=== PATIENT | male | born 1995 ===

== ENCOUNTER → 2017-07-01 | Outpatient (CLI) | payer BC ==
[2017-07-05 14:47] LABS: QUANTIF TB AG-NIL 0.04 IU/ML; QUANTIFERON NIL 0.07 IU/ML
== END | disposition home or self-care (01) ==
LOC: C.LABSPEC 12:30
PROVIDERS: ATTEND Family Medicine
DX: Z23 Encounter for immunization (principal); Z11.1 Encounter for screening for respiratory tuberculosis; Z11.3 Encounter for screening for infections with a predominantly sexual mode of transmission

== ENCOUNTER 2017-10-23 00:23 | Emergency (ER) | payer BC ==
[2017-10-23 00:32] VITALS: TEMP 36.9; Ht 175.3 cm
[2017-10-23 01:07] LABS: BLOOD UREA NITROGEN 10 mg/dl (7-18); CALCIUM 8.4 mg/dl (8.5-10.1); CARBON DIOXIDE 24 mmol/L (21-32); CREATININE 1.18 mg/dl (0.60-1.40); GLUCOSE 96 mg/dl (70-99); POTASSIUM 3.8 mmol/L (3.5-5.1); SODIUM 141 mmol/L (136-145)
--- NOTE | 2017-10-23 05:57 | EMERGENCY ROOM VISIT NOTE ---
History Report prepared by Chichi: Jojo Silveira Under the Supervision of: Dr. Jessica Paulino D.O. First contact with patient: 00:28 Chief Complaint: ALCOHOL OVERDOSE Stated Complaint: ALCOHOL OVERDOSE History of Present Illness The patient is a 21 year old male who presents to the Emergency Room with persistent alcohol intoxication starting [employer]. The patient presents to the ED by EMS. He was drinking vodka tonight. He returned to his dorm room and was vomiting. His roommate was concerned and called EMS. He denies any abdominal pain or any other pain. He denies any fall or injury. He is no longer nauseous. He does not smoke. The history is limited due to intoxication. Source of History: patient, nursing staff History Limited By: intoxication Onset: [employer] Position: other (global) Quality: other (alcohol intoxication) Timing: other (persistent) Associated Symptoms: + nausea (resolved), + vomiting (resolved), No abdominal pain Review of Systems See HPI for pertinent positives & negatives. A total of 10 systems reviewed and were otherwise negative. Past Medical & Surgical No significant past medical history. Family History No pertinent family history stated. Social History Housing Status: lives with roommate Occupation Status: [employer] student Current/Historical Medications No Active Prescriptions or Reported Meds Allergies Coded Allergies: No Known Allergies (Unverified , 10/23/17) Physical Exam Vital Signs Date Time Temp Pulse Resp B/P (MAP) Pulse Ox O2 Delivery O2 Flow Rate FiO2 10/23/17 06:10 82 18 127/75 98 Room Air 10/23/17 05:20 82 18 113/61 95 Room Air 10/23/17 04:18 73 10/23/17 03:07 74 18 113/68 96 Room Air 10/23/17 02:47 74 16 121/57 97 Room Air 10/23/17 01:44 73 16 120/57 97 Room Air 10/23/17 00:40 67 10/23/17 00:35 Room Air 10/23/17 00:35 Room Air 10/23/17 00:32 36.9 59 16 121/71 97 Room Air Physical Exam GENERAL: smells of alcohol, alert, well appearing, well nourished, no distress, non-toxic EYE EXAM: normal conjunctiva, PERRL and EOM's grossly intact OROPHARYNX: no exudate, no erythema, lips, buccal mucosa, and tongue normal and mucous membranes are moist NECK: supple, no nuchal rigidity, no adenopathy, non-tender LUNGS: Clear to auscultation. Normal chest wall mechanics HEART: no murmurs, S1 normal and S2 normal ABDOMEN: abdomen soft, non-tender, normo-active bowel sounds, no masses, no rebound or guarding. BACK: Back is symmetrical on inspection and there is no deformity, no midline tenderness, no CVA tenderness. SKIN: no rashes and no bruising UPPER EXTREMITIES: upper extremities are grossly normal. LOWER EXTREMITIES: No pitting edema. NEURO EXAM: Normal sensorium, cranial nerves II-XII grossly intact, normal speech, no gross weakness of arms, no gross weakness of legs. Medical Decision & Procedures Laboratory Results 10/23/17 00:32 Test 10/23/17 00:32 10/23/17 00:40 Anion Gap 8.0 mmol/L (3-11) Estimated GFR () 103.1 Estimated GFR (Non- 88.9 BUN/Creatinine Ratio 8.5 (10-20) Calcium Level 8.4 mg/dl (8.5-10.1) Ethyl Alcohol mg/dL 202.0 mg/dl (0-3) Bedside Glucose 95 mg/dl (70-99) Laboratory results per my review. ED Course 0031: The patient was evaluated in room A11B. A complete history and physical exam was performed. 0551: Upon reevaluation, the patient is awake and talking. I discussed the findings and the treatment plan with the patient. He verbalizes agreement and understanding. He was discharged home. Medical Decision Differential diagnosis: Etiologies such as alcohol intoxication, toxicologic, infection, hypoglycemia, electrolyte abnormalities, cardiac sources, intracerebral event, neurologic, as well as others were entertained. Patient ill-appearing here, no evidence of trauma. On re-exam patient awake and alert, no complaints, vital signs stable throughout. I have a low suspicion of any occult traumatic injury. Discussed with patient symptoms watch return for, he verbalized understanding was agreeable with plan. Medication Reconcilliation Current Medication List: was personally reviewed by me Blood Pressure Screening Patient's blood pressure: Normal blood pressure Blood pressure disposition: Did not require urgent referral Impression Primary Impression: Alcoholic intoxication Scribe Attestation The scribe's documentation has been prepared under my direction and personally reviewed by me in its entirety. I confirm that the note above accurately reflects all work, treatment, procedures, and medical decision making performed by me. Departure Information Dispostion Home / Self-Care Prescriptions No Active Prescriptions or Reported Meds Patient Instructions My [facility] Additional Instructions Please do not drink alcohol until you're legally allowed at age 21. When you do decide to drink please do so responsibly in a safe location. Do not drink and drive. If you have any other new concerns, please return the emergency room. Problem Qualifiers Primary Impression: Alcoholic intoxication Complication of substance-induced condition: uncomplicated Qualified Codes: F10.920 - Alcohol use, unspecified with intoxication, uncomplicated
[2017-10-23 06:10] VITALS: BP 127/75; PULSE 82; O2SAT 98
== END 2017-10-23 06:24 | disposition home or self-care (01) ==
LOC: EDBD 00:23 → C.EDA 00:25 → MERGE 00:25 → C.EDA 06:24
DX: F10.920 Alcohol use, unspecified with intoxication, uncomplicated (principal)